=== PATIENT | female | born 1980 | race Caucasian/White ===

== ENCOUNTER 2022-03-17 23:21 | Emergency (ER) | payer OTHER ==
[2022-03-17 23:43] VITALS: BP 142/75; TEMP 98.6; BMI 50.8
[2022-03-18] MEDS ORDERED: ALBUTEROL SO4 2.5/IPRATROPIUM 0.5 INH SOL 3 ML VIAL.NEB. NEB ONE ×2 (00:06→00:07)
[2022-03-18] MEDS ORDERED: predniSONE 20 MG TABLET (UD) PO ONE (00:24)
[2022-03-18] MEDS ORDERED: predniSONE 20 MG TABLET (UD) ONE (00:25)
[2022-03-18 01:14] VITALS: PULSE 117; RESP 20
== END 2022-03-18 01:20 | disposition home or self-care (01) ==
LOC: FER 23:21
PROC: 3E0F7GC Introduction of Other Therapeutic Substance into Respiratory Tract, Via Natural or Artificial Opening (ICD-10-PCS; principal; 2022-03-17)
DX: U07.1 COVID-19 (principal); R06.02 Shortness of breath
CPT/HCPCS: 0241U-QW; 99283-25